=== PATIENT | male | born 1965 | race African-American/Black ===

== ENCOUNTER 2017-12-31 18:04 | Emergency (ER) | payer OTHER ==
[~2017-12-31] VITALS: Ht 175.3 cm; Wt 93.9 kg
[~2017-12-31 18:04] MED LIST: METFORMIN HCL500 MG PO; NEXIUM20 MG PO; ZANTAC150 MG PO
[2017-12-31 20:09] LABS: HEMATOCRIT 38.9 % (38.0-50.0); HEMOGLOBIN 12.7 G/DL (12.5-16.6); MCH 27.1 PG (29.0-34.0); MCHC 32.6 G/DL (30.0-36.0); MCV 82.9 FL (86-99); RBC DIS.WIDTH-CV 14.9 % (11.8-14.6); RBC DIS.WIDTH-SD 44.7 % (39-53); RED BLOOD COUNT 4.69 M/uL (4.00-5.50); WHITE BLOOD COUNT 5.6 K/uL (4.1-10.2)
[2017-12-31 20:12] LABS: CHLORIDE 106 mEq/L (99-109); SODIUM 141 mEq/L (136-147)
[2017-12-31 20:14] LABS: GLUCOSE 93 mg/dL (70-99)
[2017-12-31 20:18] LABS: CREATININE 0.9 mg/dL (0.6-1.3); GFR ESTIMATE (CALCULATED) > 59 mL/min/ (58.99-99999)
[2017-12-31 20:19] LABS: UREA NITROGEN (BUN) 15 mg/dL (9-23)
[2017-12-31 20:22] LABS: TROP-I INTERPRETATION NEGATIVE; TROPONIN-I < 0.01 ng/mL (0.0-0.30)
[2017-12-31 20:54] LABS: PLAT.SUFFICIENCY ADEQUATE; PLATELET COUNT 231 K/uL (156-360)
[2017-12-31 21:22] LABS: TROP-I INTERPRETATION NEGATIVE; TROPONIN-I < 0.01 ng/mL (0.0-0.30)
[2017-12-31 22:37] VITALS: BP 145/80
== END 2017-12-31 22:37 | disposition home or self-care (01) ==
LOC: EME 18:04
PROVIDERS: Emergency Medicine
DX: R07.9 Chest pain, unspecified (principal); E11.9 Type 2 diabetes mellitus without complications; Z79.84 Long term (current) use of oral hypoglycemic drugs
CPT/HCPCS: 71046; 80048; 84484; 85027; 93005; 99281; 99284